=== PATIENT | male | born 1990 | race African-American/Black ===

== ENCOUNTER 2018-12-23 16:53 | Emergency (ER) | payer OTHER, SELFPAY ==
[2018-12-23 17:02] VITALS: BP 122/60; PULSE 61; RESP 14; TEMP 36.7; O2SAT 100; BMI 25.8
--- NOTE | 2018-12-23 17:04 | ED_ITS ---
HPI - Eye Problem <MOHAMUD Curtis - Last Filed: 12/23/18 21:15> General Chief complaint: Eye Problems Stated complaint: RT EYE IRRITATION Time Seen by Provider: 12/23/18 17:01 Source: patient Mode of arrival: ambulatory Limitations: no limitations History of Present Illness HPI Narrative: 28-year-old healthy male presents emergency department today complaining of right eye irritation with burning and itching and slight 1/10 irritating pain starting yesterday. Patient states that he wears contacts and thinks that this may have caused the problem. Reports white discharge collected around his eye with associated clear rhinorrhea. Denies getting anything in his eye that he is aware of, denies any activities such as grinding or welding. Denies fevers, chills headache, change in vision, sinus pain, ear pain, sore throat, chest pain, shortness of breath, nausea, changes in stools. Patient states that this has not happened to him before. MD chief complaint: eye redness Onset (ago): day(s) Onset description: gradual Duration: constant Location: right eye Eye Symptoms: redness, itching and discharge Place: home Mechanism: none Severity: mild Severity scale (1-10): 1 If Pain, Quality: aching Associated symptoms: rhinorrhea Treatments Prior to Arrival: none Related Data Previous Rx's Medication Instructions Recorded moxifloxacin 5 % OPHTHALMIC (EYE) TID #3 ml 12/23/18 Allergies Allergy/AdvReac Type Severity Reaction Status Date / Time No Known Drug Allergies Allergy Verified 12/23/18 17:02 Review of Systems <MOHAMUD Curtis - Last Filed: 12/23/18 21:15> Review of Systems REVIEW OF SYSTEMS: GENERAL: Denies fever or chills. HENT: No head trauma, hearing loss or sore throat. EYES: Complains of right eye irritation, see HPI. CARDIOVASCULAR: No chest pain or syncope. RESPIRATORY: No shortness of breath or cough. GASTROINTESTINAL: No nausea, vomiting, diarrhea, or constipation. INTEGUMENTARY: No rash, lesions, or pruritus. NEURO: No numbness, tingling, memory loss, or confusion. PSYCH: No behavior or mood changes. PFSH <MOHAMUD Curtis - Last Filed: 12/23/18 21:15> Medical History No significant medical problems (Acute) Social History Smoking Status: Never smoker Social History Smoking Status: Never smoker Exam <MOHAMUD Curtis - Last Filed: 12/23/18 21:15> Initial Vital Signs Initial Vital Signs: Vital Signs Temperature 98.0 F 12/23/18 17:02 Pulse Rate 61 12/23/18 17:02 Respiratory Rate 14 12/23/18 17:02 Blood Pressure 122/60 12/23/18 17:02 Pulse Oximetry 100 12/23/18 17:02 PHYSICAL EXAMINATION: GENERAL: Well groomed, alert, and cooperative Answers questions promptly and appropriately. Vital signs noted. HENT: Normocephalic, atraumatic. Clear nasal discharge noted on exam. EYES: PERRLA, EOMIs without pain, conjunctiva injected in right eye, no ciliary flush. For seen exam showed no foreign body or abrasion. Clear discharge noted from eye. RESPIRATORY: Normal respiratory rate, trachea midline, airway patent. No stridor, nasal flaring or accessory muscle use. L MUSCULOSKELETAL: Normal gait and coordination. Equal tone and mass bilaterally. EXTREMITIES: CMS intact. Moves all extremities. SKIN: Warm, dry, soft, appropriate color for ethnicity. No lesions, rashes, or wounds. NEURO: Alert and Oriented X 3. Good coordination. PSYCH: Appropriate affect and mood. Eyes Cornea: fluorescein used <Mike Aguirre DO - Last Filed: 12/29/18 00:45> Initial Vital Signs Initial Vital Signs: Vital Signs Temperature 98.0 F 12/23/18 17:02 Pulse Rate 61 12/23/18 17:02 Respiratory Rate 14 12/23/18 17:02 Blood Pressure 122/60 12/23/18 17:02 Pulse Oximetry 100 12/23/18 17:02 Course <MOHAMUD Curtis - Last Filed: 12/23/18 21:15> Course Narrative: Proparacaine and fluorescein used to evaluate right eye. Vital Signs - 8 hr 12/23/18 17:02 Temperature 98.0 F Pulse Rate 61 Respiratory Rate 14 Blood Pressure 122/60 Pulse Oximetry 100 <Mike Aguirre DO - Last Filed: 12/29/18 00:45> Vital Signs - 8 hr 12/23/18 17:02 Temperature 98.0 F Pulse Rate 61 Respiratory Rate 14 Blood Pressure 122/60 Pulse Oximetry 100 [facility] - Eye Problem <VARSHA CurtisP - Last Filed: 12/23/18 21:15> Medical Records Attestation: I reviewed the patient's medical records. Lab Data Attestation: I reviewed the patient's lab results. [facility] Narrative Medical decision making narrative: Most likely bacterial conjunctivitis due to the fact that the patient wears contacts, lack of abrasion or foreign body, in the lateral presentation, no report of recent viral illness. Less likely foreign body or corneal abrasion as these were not seen with a 4 cm exam. Less likely acute angle glaucoma or orbital cellulitis as there is no significant pain in eye, and in particular no pain with extraocular movements. Patient instructed to follow up with the eye doctor if symptoms persist. Discharge Plan Departure Patient Disposition: Home Clinical Impression: Conjunctivitis Qualifiers: Conjunctivitis type: acute Acute conjunctivitis type: unspecified Laterality: right Qualified Code(s): H10.31 - Unspecified acute conjunctivitis, right eye Discharge Date/Time: 12/23/18 17:43 Interventions: ED Discharge Assessment Last Done: 12/23/18 17:42 Instructions: DI for Conjunctivitis Activity Restrictions/Additional Instructions: Thank you for entrusting me with your care today. As discussed, your symptoms may be due from an infection in your eye. This is common with the people who wear contacts. I have prescribed you antibiotic eye drops, please place 1 drop in you're right eye 3 times a day for 7 days. Do not wear contacts until all of your symptoms clear up. Discard contact lenses if there are soft lenses, as we ll as your contact case and use new contact after your infection has resolved. If you develop symptoms in the left eye you may use these drops for that eye as well. Follow up with an eye doctor if your symptoms do not start to resolve in 24-48 hours, or if an infection reoccurs. Return to the emergency department if you have severe eye pain, change in vision, severe headaches, inability to move your eye or severe pain with eye movement, chest pain or shortness of breath. Prescriptions: New moxifloxacin 0.5 % drops 5 % ophthalmic (eye) TID Qty: 3 RF: 0 <Mike Saco, DO - Last Filed: 12/29/18 00:45> Cosign ED Attending Coseri[place]ature Attestation: I was immediately available in the department for consultation. Documentation has been reviewed. I agree with assessment and plan.
== END 2018-12-23 17:43 | disposition home or self-care (01) ==
LOC: ED 17:41
PROVIDERS: Emergency Provider Nurse Practitioner
DX: H10.31 Unspecified acute conjunctivitis, right eye (principal)
CPT/HCPCS: 99283

== ENCOUNTER 2019-02-24 18:11 | Emergency (ER) | payer OTHER, SELFPAY ==
[2019-02-24 18:18] VITALS: BP 109/54; PULSE 65; RESP 18; TEMP 36.7; O2SAT 98
--- NOTE | 2019-02-24 18:34 | ED_ITS ---
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 Patient states that earlier today he landed on his right shoulder with his shoulder in abduction while playing basketball. He states that afterwards he shoulder was a little numb but that seems to have improved. He currently does not complain of any pain. He has no elbow or wrist tenderness. He has full range of motion of his right shoulder. He does states that he feels like his right shoulder feels abnormal compared to the left side although he does state that overall he has improved currently from earlier today. Related Data Home Medications Medication Instructions Recorded Confirmed No Known Home Medications 02/24/19 02/24/19 Allergies Allergy/AdvReac Type Severity Reaction Status Date / Time No Known Drug Allergies Allergy Verified 02/24/19 18:22 Review of Systems Constitutional Denies fever(s) ENT Ears, Nose, Mouth, and Throat: Denies neck pain Cardiovascular Denies chest pain and Denies dyspnea Respiratory Denies dyspnea Gastrointestinal Gastrointestinal: Denies abdominal pain Musculoskeletal Denies myalgias, Denies neck pain and Denies tingling Comments: Abnormal feeling of the right shoulder Integumentary/Breasts Denies lesions and Denies rash Neurologic Denies sensory deficit, Denies tingling and Denies paresthesias Hematologic/Lymphatic Denies easy bleeding and Denies easy bruising [facility] Medical History No significant medical problems (Acute) Social History Smoking Status: Never smoker Exam Initial Vital Signs Initial Vital Signs: Vital Signs Temperature 98.1 F 02/24/19 18:18 Pulse Rate 65 02/24/19 18:18 Respiratory Rate 18 02/24/19 18:18 Blood Pressure 109/54 L 02/24/19 18:18 Pulse Oximetry 98 02/24/19 18:18 Const General: cooperative, comfortable, well developed, well groomed and No acute distress Orientation: alert, awake and oriented x3 Resp Effort & Inspection: normal respiratory effort Cardio Pulses: radial pulses present on the right Back/Spine/Pelvis Cervical Spine: No cervical spinal tenderness Skin Lesions: no lesions Rashes: no rashes Neuro General: alert and awake Cognition: normal cognition Speech: speech normal Motor: muscle tone normal throughout Sensory Exam: no sensory deficits noted Extrem General: normal to inspection and capillary refill normal Other: Patient with full range of motion of the right shoulder. Right elbow and right wrist. He has no tenderness to palpation along the clavicle or the posterior aspect of the right shoulder. No tenderness to palpation over the bi ceps tendon over deltoid. Course Vital Signs - 8 hr 02/24/19 18:18 Temperature 98.1 F Pulse Rate 65 Respiratory Rate 18 Blood Pressure 109/54 L Pulse Oximetry 98 MDM - Extremity Injury (Upper) MDM Narrative Medical decision making narrative: Patient has no objective findings on his right shoulder exam today. Will hold on any x-ray findings. He has no neck tenderness. No tenderness to palpation over the AC joint or the collar bone. I have low suspicion for fracture. He is neurovascularly intact. we did discuss use of anti-inflammatories. Will have him wait a couple days to see if his symptoms do not continue to improve. He will follow up with his medical department if his symptoms do not improve. He expressed understanding and agree with plan. Discharge Plan Departure Patient Disposition: Home Clinical Impression: Right shoulder pain Qualifiers: Chronicity: acute Qualified Code(s): M25.511 - Pain in right shoulder Discharge Date/Time: 02/24/19 18:46 Interventions: ED Discharge Assessment Last Done: 02/24/19 18:45 Instructions: DI for Shoulder Pain Activity Restrictions/Additional Instructions: I do recommend that you give your shoulder couple more days to see if it does not continue to improve/heal. If it does not contact your medical department to discuss further workup. Prescriptions: No Action No Known Home Medications RF: 0
== END 2019-02-24 18:46 | disposition home or self-care (01) ==
PROVIDERS: Emergency Provider Emergency Medicine
DX: M25.511 Pain in right shoulder (principal)
CPT/HCPCS: 99282

== ENCOUNTER 2019-03-15 14:49 | Emergency (ER) | payer OTHER, SELFPAY ==
[2019-03-15 14:50] VITALS: BP 132/73; PULSE 57; RESP 16; TEMP 36.9; O2SAT 100
[2019-03-15] MEDS: ONDANSETRON 4 MG/2 ML INJ IV (15:06)
[2019-03-15] MEDS: PANTOPRAZOLE 40 MG VIAL IV (15:06)
[2019-03-15 15:07] LABS: Add Manual Diff / Slide Review NO; Basophils Absolute Auto 0 /uL (0-100); Basophils Percent Auto 0.8 % (0-2); Eosinophils Absolute Auto 100 /uL (0-450); Eosinophils Percent Auto 1.4 % (2-4); Hematocrit 39.8 % (41-53); Hemoglobin 13.5 g/dL (13.5-17.5); Lymphocytes Absolute Auto 1400 /uL (1100-4500); Lymphocytes Percent Auto 22.5 % (25-40); Mean Corpuscular HGB Conc 33.9 % (30-36); Mean Corpuscular Hemoglobin 30.1 PG (26-34); Mean Corpuscular Volume 88.8 fL (80-100); Monocytes Absolute Auto 500 /uL (0-900); Monocytes Percent Auto 8.3 % (3-14); Neutrophils Absolute Auto 4000 /uL (1500-7000); Platelet Count 271 X10^3/uL (150-400); Red Blood Cell Count 4.49 X10^6/uL (4.5-5.9); Red Cell Distribution Width 13.4 % (11.6-14.8)
[2019-03-15] MEDS: SODIUM CHLORIDE 0.9% 1,000 ML 1000 ML IV (15:07)
[2019-03-15 15:19] LABS: Prothrombin Time 11.1 SECONDS (10.1-12.7)
[2019-03-15 15:22] LABS: PTT Partial Thromboplastin Tim 32 SECONDS (26.4-36.2)
[2019-03-15 15:23] LABS: Alanine Aminotransferase 27 IU/L (21-72); Albumin 4.7 g/dL (3.5-5.0); Albumin Globulin Ratio 1.5 (1.0-2.8); Alkaline Phosphatase 44 U/L (38-126); Aspartate Aminotransferase 38 IU/L (17-59); BUN Creatinine Ratio 11.7 (6-22); Bilirubin Total 0.7 mg/dL (0.2-1.3); Blood Urea Nitrogen 14 mg/dL (9-20); Calcium 9.2 mg/dL (8.4-10.2); Carbon Dioxide 27 mmol/L (22-32); Chloride 99 mmol/L (98-107); Estimated Glomerular Filt Rate > 60.0 mL/min (>60); Globulin 3.2 g/dL (1.7-4.1); Glucose 96 mg/dL (70-100); HEMOLYSIS < 15 (0-50); Lipase 73 U/L (23-300); Potassium 3.6 mmol/L (3.4-5.1); Sodium 136 mmol/L (137-145); Total Protein 7.9 g/dL (6.3-8.2)
[2019-03-15 15:30] VITALS: BP 119/56; PULSE 67; RESP 17; O2SAT 95
--- NOTE | 2019-03-15 17:13 | PC.NURSE ---
no emesis since admit to ed
--- NOTE | 2019-03-16 00:05 | ED.NAVMDI ---
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 Patient denies any recent travel outside the [place] exposure to illness, fever or chills, history of ulcer/gastritis, melena. Patient denies chest pain, breathing difficulty, feeling dizzy. Patient denies any urinary symptoms. Related Data Previous Rx's Medication Instructions Recorded ondansetron 4 mg PO Q8-12H PRN #7 tab 03/15/19 Allergies Allergy/AdvReac Type Severity Reaction Status Date / Time No Known Drug Allergies Allergy Verified 03/15/19 14:55 Review of Systems <MOHAMUD Michelle - Last Filed: 03/16/19 00:14> Review of Systems Narrative: General: Denies fever, chills, fatigue, malaise, sweats. HEENT: Denies sinus pain, ear pain, sore throat, difficulty swallowing, dizziness. Respiratory: Denies dyspnea, cough, wheezing, hemoptysis, sputum. Cardiovascular: Denies chest pain, palpitations, orthopnea, edema. Gastrointestinal: See HPI : Denies dysuria, frequency, incontinence, hematuria, urinary retention. Musculoskeletal: Denies weakness, joint pain or bony pain. Skin: Denies rash, skin lesions, or other. Neurologic: Denies weakness, headache, numbness, change in speech, confusion, seizures, incoordination. Psychiatric: No concerning psychosocial issues. 12-point review of systems is negative except for those stated above. PFSH <MOHAMUD Michelle - Last Filed: 03/16/19 00:14> Social History Smoking Status: Never smoker Exam <MOHAMUD Michelle - Last Filed: 03/16/19 00:14> Narrative Exam Narrative: GEN: Alert, oriented x 3, well appearing and nourished, and in no acute distress. Head: Normal cephalic, atraumatic. No scalp or temporal tenderness, palpable mass or rash. EYES: Pupils are equal, round, and reactive to light and accommodation. Extraocular muscles are intact bilaterally. There is no subconjunctival hemorrhage, exudate and sclera non-icteric. ENT: Bilateral auditory canals and tympanic membranes clear. Hearing grossly intact. Nose without bleeding, purulent discharge or deviation. Facial sinuses nontender to palpate. Mucous membrane moist, no mucosal lesion. Throat without erythema, tonsillar hypertrophy or exudate. Uvula in midline, airway patent. Neck: Trachea in midline. No JVD, non-tender without lymphadenopathy. No masses or thyroid megaly. Supple, non-tender and no meningeal signs. CARDIAC: Normal regular rate and rhythm without murmurs, gallops, or rubs. No chest wall tenderness. No peripheral edema, cyanosis or pallor. Capillary refill is less than 2 seconds. RESPIRATORY: Lungs are cleat to auscultate bilaterally. No cough, wheezes, rales, or rhonchi. No stridor, respiratory distress, increase work of breathing, or accessary muscle used. ABD: Abdomen soft, nontender and non-distended. No guarding or rebound tenderness to palpate, no peritoneal signs. Bowel sounds are normal in all 4 quadrants. There is no palpable masses or organomegaly. EXT: Full painless ROM of all extremities with no loss of sensation, strength, effusion or edema. SKIN: Warm, dry, normal color for patient. No erythema, lesions or rash over visible areas. BACK: Nontender without deformity or crepitance. No flank tenderness. NEUROLOGICAL: Alert and oriented to place, time and person. Sensation and motor function intact bilaterally. No facial droops, dysphasia. PSYCHIATRIC: Good judgement and reason, without hallucinations, abnormal affect or abnormal behaviors during the examination. Initial Vital Signs Initial Vital Signs: Vital Signs Temperature 98.5 F 03/15/19 14:50 Pulse Rate 57 L 03/15/19 14:50 Respiratory Rate 16 03/15/19 14:50 Blood Pressure 132/73 03/15/19 14:50 Pulse Oximetry 100 03/15/19 14:50 <Latoya Vanessa, DO - Last Filed: 03/16/19 08:13> Initial Vital Signs Initial Vital Signs: Vital Signs Temperature 98.5 F 03/15/19 14:50 Pulse Rate 57 L 03/15/19 14:50 Respiratory Rate 16 03/15/19 14:50 Blood Pressure 132/73 03/15/19 14:50 Pulse Oximetry 100 03/15/19 14:50 Course <River ClarosMOHAMUD Torres - Last Filed: 03/16/19 00:14> Orders Ordered: Discontinued Medications Sodium Chloride (Normal Saline 0.9%) 1,000 mls @ 1,000 mls/hr IV BOLUS ONE Stop: 03/15/19 15:55 Last Infusion: 03/15/19 17:11 Dose: 1,000 mls/hr Documented by: Admin: 03/15/19 15:07 Dose: 1,000 mls/hr Documented by: MILO Ondansetron HCl (Zofran) 4 mg IV NOW ONE Stop: 03/15/19 14:57 Last Admin: 03/15/19 15:06 Dose: 4 mg Documented by: MILO Pantoprazole Sodium (Protonix) 40 mg IV NOW ONE Stop: 03/15/19 14:57 Last Admin: 03/15/19 15:06 Dose: 40 mg Documented by: MILO <Latoya Vanessa DO - Last Filed: 03/16/19 08:13> Orders Ordered: Discontinued Medications Sodium Chloride (Normal Saline 0.9%) 1,000 mls @ 1,000 mls/hr IV BOLUS ONE Stop: 03/15/19 15:55 Last Infusion: 03/15/19 17:11 Dose: 1,000 mls/hr Documented by: Admin: 03/15/19 15:07 Dose: 1,000 mls/hr Documented by: MILO Ondansetron HCl (Zofran) 4 mg IV NOW ONE Stop: 03/15/19 14:57 Last Admin: 03/15/19 15:06 Dose: 4 mg Documented by: MILO Pantoprazole Sodium (Protonix) 40 mg IV NOW ONE Stop: 03/15/19 14:57 Last Admin: 03/15/19 15:06 Dose: 40 mg Documented by: MILO [facility] - Nausea/Vomiting/Diarrhea <River ClarosMOHAMUD Smith - Last Filed: 03/16/19 00:14> Differential Diagnosis Differential diagnosis: Likely gastroenteritis, dehydration and other (Gastritis) Medical Records Attestation: I reviewed the patient's medical records. Lab Data Attestation: I reviewed the patient's lab results. Result diagrams: 03/15/19 14:55 03/15/19 14:55 Labs: Lab Results 03/15/19 03/15/19 03/15/19 Range/Units 14:55 14:55 14:55 WBC 6.0 (4.5-11.0) X10^3/uL RBC 4.49 L (4.5-5.9) X10^6/uL Hgb 13.5 (13.5-17.5) g/dL Hct 39.8 L (41-53) % MCV 88.8 (80-100) fL MCH 30.1 (26-34) PG MCHC 33.9 (30-36) % RDW 13.4 (11.6-14.8) % Plt Count 271 (150-400) X10^3/uL Neut % (Auto) 67.0 (50-75) % Lymph % (Auto) 22.5 L (25-40) % [facility] % (Auto) 8.3 (3-14) % Eos % (Auto) 1.4 L (2-4) % Baso % (Auto) 0.8 (0-2) % Neut # (Auto) 4000 (3698-6226) /uL Lymph # (Auto) 1400 (7244-8362) /uL [facility] # (Auto) 500 (0-900) /uL Eos # (Auto) 100 (0-450) /uL Baso # (Auto) 0 (0-100) /uL PT 11.1 (10.1-12.7) SECONDS INR 1.0 (0.9-1.3) APTT 32 (26.4-36.2) SECONDS Sodium 136 L (137-145) mmol/L Potassium 3.6 (3.4-5.1) mmol/L Chloride 99 (98-107) mmol/L Carbon Dioxide 27 (22-32) mmol/L BUN 14 (9-20) mg/dL Creatinine 1.20 (0.66-1.25) mg/dL Estimated GFR > 60.0 (>60) mL/min BUN/Creatinine Ratio 11.7 (6-22) Glucose 96 (70-100) mg/dL Calcium 9.2 (8.4-10.2) mg/dL Total Bilirubin 0.7 (0.2-1.3) mg/dL AST 38 (17-59) IU/L ALT 27 (21-72) IU/L Alkaline Phosphatase 44 (38-126) U/L Total Protein 7.9 (6.3-8.2) g/dL Albumin 4.7 (3.5-5.0) g/dL Globulin 3.2 (1.7-4.1) g/dL Albumin/Globulin Ratio 1.5 (1.0-2.8) Lipase 73 (23-300) U/L Urine Dip Bedside Urine Glucose Negative Bedside Urine Bilirubin - Negative Bedside Urine Ketone - Negative Urine Specific [place] 1.005 Bedside Urine Occult Blood - Negative Bedside Urine pH 6.0 Bedside Urine Urobilinogen - Negative Bedside Urine Nitrite - Negative Bedside Urine Leukocytes - Negative Esterase MDM Narrative Medical decision making narrative: Patient presents today with periumbilical cramping pain. Patient had once scant amount of blood with nausea and vomiting, diarrhea once this morning. Patient is healthy and nontoxic appearance. Patient's blood test CBC and chemistries were unremarkable. There was no decrease in H/H or leukocytosis. His abdominal physical exam was benign. Patient was medicated with Zofran and pantoprazole and 1 L of IV fluid. Patient reports his nausea and abdominal pain has improved. We discussed return precautions and patient advised to follow up with his sickle in next couple of days. Patient verbalized the understanding and advise treatment plan. Patient discharged to home with Zofran to use as needed if he has recurring nausea. 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 If his symptoms persist then patient should be re-evaluated by his primary care physician. His urine test was negative for infection. <Latoya Vanessa, DO - Last Filed: 03/16/19 08:13> Lab Data Labs: Lab Results 03/15/19 03/15/19 03/15/19 Range/Units 14:55 14:55 14:55 WBC 6.0 (4.5-11.0) X10^3/uL RBC 4.49 L (4.5-5.9) X10^6/uL Hgb 13.5 (13.5-17.5) g/dL Hct 39.8 L (41-53) % MCV 88.8 (80-100) fL MCH 30.1 (26-34) PG MCHC 33.9 (30-36) % RDW 13.4 (11.6-14.8) % Plt Count 271 (150-400) X10^3/uL Neut % (Auto) 67.0 (50-75) % Lymph % (Auto) 22.5 L (25-40) % [facility] % (Auto) 8.3 (3-14) % Eos % (Auto) 1.4 L (2-4) % Baso % (Auto) 0.8 (0-2) % Neut # (Auto) 4000 (8200-3328) /uL Lymph # (Auto) 1400 (3365-7386) /uL [facility] # (Auto) 500 (0-900) /uL Eos # (Auto) 100 (0-450) /uL Baso # (Auto) 0 (0-100) /uL PT 11.1 (10.1-12.7) SECONDS INR 1.0 (0.9-1.3) APTT 32 (26.4-36.2) SECONDS Sodium 136 L (137-145) mmol/L Potassium 3.6 (3.4-5.1) mmol/L Chloride 99 (98-107) mmol/L Carbon Dioxide 27 (22-32) mmol/L BUN 14 (9-20) mg/dL Creatinine 1.20 (0.66-1.25) mg/dL Estimated GFR > 60.0 (>60) mL/min BUN/Creatinine Ratio 11.7 (6-22) Glucose 96 (70-100) mg/dL Calcium 9.2 (8.4-10.2) mg/dL Total Bilirubin 0.7 (0.2-1.3) mg/dL AST 38 (17-59) IU/L ALT 27 (21-72) IU/L Alkaline Phosphatase 44 (38-126) U/L Total Protein 7.9 (6.3-8.2) g/dL Albumin 4.7 (3.5-5.0) g/dL Globulin 3.2 (1.7-4.1) g/dL Albumin/Globulin Ratio 1.5 (1.0-2.8) Lipase 73 (23-300) U/L Urine Dip Bedside Urine Glucose Negative Bedside Urine Bilirubin - Negative Bedside Urine Ketone - Negative Urine Specific [place] 1.005 Bedside Urine Occult Blood - Negative Bedside Urine pH 6.0 Bedside Urine Urobilinogen - Negative Bedside Urine Nitrite - Negative Bedside Urine Leukocytes - Negative Esterase Discharge Plan Departure Patient Disposition: Home Clinical Impression: Nausea & vomiting Qualifiers: Vomiting type: unspecified Vomiting Intractability: non-intractable Qualified Code(s): R11.2 - Nausea with vomiting, unspecified Discharge Date/Time: 03/15/19 17:15 Instructions: DI for Viral Gastroenteritis -- Adult Activity Restrictions/Additional Instructions: You have been diagnosed with [nausea vomiting and diarrhea with abdominal discomfort. Your labs are unremarkable. You're treated with Zofran and pantoprazole IV for discomfort and nausea which helped your symptoms]. What to do: *Take your medications as directed. Please take prescriptive medication as needed for nausea and vomiting. *Follow up with your primary care provider in 2-3 days, call for an appointment. Let them know you were seen in the ED and that we asked you to be seen in follow up. *Return to ED if you have any new, worsening, or concerning symptoms, such as [fever, chills, repeated vomiting after the medication, increasing stomach pain, unable to tolerate fluids, chest pain, breathing difficulty, or any acute concerns]. Prescriptions: New ondansetron 4 mg tablet,disintegrating 4 mg PO Q8-12H PRN (Reason: nausea and vomiting) Qty: 7 RF: 0 Referrals: [facility] [Outside]
== END 2019-03-15 17:15 | disposition home or self-care (01) ==
PROVIDERS: Emergency Provider Nurse Practitioner Family
DX: R11.2 Nausea with vomiting, unspecified (principal)
CPT/HCPCS: 36591; 80053; 81003; 83690; 85025; 85610; 85730; 96361; 96374; 96375; 99283; 99284; C9113; J2405